=== PATIENT | female | born 1970 | race Caucasian/White ===

== ENCOUNTER → 2016-11-09 | Outpatient (CLI) | payer BC ==
[~2016-11-09] MED LIST: OMNIPAQUE 350 MG/ML, 100ML BOTTLE ONE
[2016-11-09 17:31] LABS: ASPARTATE AMINO TRANSFERASE 23 U/L (15-37); BLOOD UREA NITROGEN 14 mg/dL (7-18)
[2016-11-09 17:53] LABS: ANISOCYTOSIS 1+; DIFF TOTAL CELLS COUNTED 200 CELL DIFF; VERIFY COUNTS? YES
[2016-11-09 17:55] LABS: HYPOCHROMIA 1+; POLYCHROMASIA 1+
== END | disposition home or self-care (01) ==
LOC: RAD 16:48
PROVIDERS: ATTEND Internal Medicine
DX: R10.84 Generalized abdominal pain (principal); R10.13 Epigastric pain; K64.9 Unspecified hemorrhoids
CPT/HCPCS: 36415; 74177; 80053; 83690; 85025; Q9967